=== PATIENT | female | born 1975 | race Caucasian/White ===

== ENCOUNTER 2017-02-07 03:38 | Emergency (ER) | payer OTHER ==
[~2017-02-07] VITALS: Ht 172.7 cm; Wt 64.2 kg
[~2017-02-07 03:38] MED LIST: AMBIEN10 M1 PO; AUGMENTIN875 MG PO; BACTRIM,SEPT1 TABLET PO; CELEXA20 MG PO; CLEOCIN150 MG PO; CLONAZEPAM1 MG PO; Cleocin PO; DOXEPIN HCL150 MG PO; EFFEXOR XR75 MG; EXCUSE; FLEXERIL10 MG PO; FOCALIN XR20 MG PO; INDERAL20 MG PO; INTUNIV1 MG PO; KEFLEX500 MG PO; LATUDA60 MG PO; LYRICA50 MG PO; LYRICA75 MG PO; MUCUS RELIEF600 MG PO; NOHOMEMEDS; PREDNISONE20 MG PO; PREMARIN0.3 MG PO; PROPRANOLOL; ROBITUSSIN NIG118 ML PO; SEROQUEL200 MG PO; SKELAXIN800 MG PO; TEGRETOL XR400 MG PO; TEGRETOL-XR,CA400 MG PO; TEGRETOL200 MG PO; TESSALON PERLE100 MG PO; TOPAMAX100 MG PO; TOPAMAX200 MG PO; TOPAMAX50 MG PO; TRILEPTAL600 MG PO; TYLENOL EXTRA500 MG PO; TYLENOL WITH C1 EACH PO; Tylenol Regular Stre PO; VALTREX1000 MG PO; VICODIN 5-3001 EACH PO; oxyCODONE PO
[2017-02-07 04:21] LABS: HEMATOCRIT 40.9 % (36.0-46.0); MCH 31.7 PG (29.0-34.0); MCHC 33.3 G/DL (30.0-36.0); MCV 95.3 FL (83-99); MEAN PLAT.VOLUME 11.2 uM^3 (9.5-12.4); PLATELET COUNT 136 K/uL (156-360); RBC DIS.WIDTH-CV 13.2 % (11.8-14.6); RED BLOOD COUNT 4.29 M/uL (3.80-5.20); WHITE BLOOD COUNT 5.3 K/uL (4.1-10.2)
[2017-02-07 04:29] LABS: CHLORIDE 109 mEq/L (99-109); POTASSIUM 3.6 mEq/L (3.7-5.4); SODIUM 141 mEq/L (136-147)
[2017-02-07 04:30] LABS: ADD MIUA? YES; BILIRUBIN NEGATIVE; BLOOD LARGE; COLOR YELLOW ((YELLOW)); GLUCOSE (STRIP) NEGATIVE; KETONES NEGATIVE; LEUKOCYTES NEGATIVE; NITRITE NEGATIVE; PROTEIN (STRIP) 100; SPECIFIC GRAVITY 1.018 (1.000-1.030)
[2017-02-07 04:31] LABS: GLUCOSE 129 mg/dL (70-99)
[2017-02-07 04:33] LABS: ANION GAP 10 MEQ/L (2-14)
[2017-02-07 04:35] LABS: GFR ESTIMATE (CALCULATED) > 59 mL/min/
[2017-02-07 04:36] LABS: UREA NITROGEN (BUN) 18 mg/dL (9-23)
[2017-02-07 05:00] LABS: BACTERIA NONE SEEN /HPF; EPITHELIAL CELLS RARE /HPF; MUCUS NONE SEEN /LPF; RED BLOOD CELLS NONE SEEN /HPF (0-5); UCUL ADDED? NO; WHITE BLOOD CELLS NONE SEEN /HPF (0-5)
[2017-02-07] MEDS ORDERED: PERCOCET 5/31 TABLET PO (05:04)
[2017-02-07] MEDS ORDERED: ZOFRAN4 MG PO (05:04)
[2017-02-07] MEDS ORDERED: FLOMAX0.4 MG PO (05:04)
[2017-02-07 05:15] VITALS: BP 133/77
== END 2017-02-07 05:22 | disposition home or self-care (01) ==
LOC: EME 03:38
DX: N20.0 Calculus of kidney (principal); F32.9 Major depressive disorder, single episode, unspecified; Z87.442 Personal history of urinary calculi; Z91.041 Radiographic dye allergy status; Z88.6 Allergy status to analgesic agent; Z88.8 Allergy status to other drugs, medicaments and biological substances; F17.200 Nicotine dependence, unspecified, uncomplicated
CPT/HCPCS: 80048; 81003; 85027; 99281; 99285; J2270; J7030

== ENCOUNTER 2017-03-20 11:43 | Emergency (ER) | payer OTHER ==
[~2017-03-20] VITALS: Ht 172.7 cm; Wt 61.9 kg
[~2017-03-20 11:43] MED LIST changes: +FLOMAX0.4 MG PO; +PERCOCET 5/31 TABLET PO; +ZOFRAN4 MG PO
[2017-03-20 12:33] LABS: EOSINOPHIL (%) 2.4 % (0-5); EOSINOPHIL COUNT 0.1 K/uL (0-0.3); HEMATOCRIT 37.6 % (36.0-46.0); IMMATURE GRANULOCYTE (%) 0.8 % (0.0-0.7); IMMATURE GRANULOCYTE COUNT 0.1 K/uL; INSTRUMENT ABS NEUTROPHIL CT 3.1 K/uL; LYMPHOCYTE COUNT 2.3 K/uL (1.0-2.8); MCH 31.5 PG (29.0-34.0); MCHC 34.3 G/DL (30.0-36.0); MCV 91.9 FL (83-99); MEAN PLAT.VOLUME 9.5 uM^3 (9.5-12.4); MONOCYTE (%) 6.3 % (3-12); MONOCYTE COUNT 0.4 K/uL (0-0.8); NEUTROPHIL (%) 51.6 % (45-76); NEUTROPHIL COUNT 3.1 K/uL (1.8-6.4); PLATELET COUNT 474 K/uL (156-360); RBC DIS.WIDTH-CV 12.8 % (11.8-14.6); RBC DIS.WIDTH-SD 42.5 % (39-53); RED BLOOD COUNT 4.09 M/uL (3.80-5.20); WHITE BLOOD COUNT 5.9 K/uL (4.1-10.2)
[2017-03-20] MEDS ORDERED: BACTRIM,SEPT1 TABLET PO (13:03)
[2017-03-20] MEDS ORDERED: KEFLEX500 MG PO (13:03)
[2017-03-20 13:10] LABS: CHLORIDE 99 mEq/L (99-109); POTASSIUM 2.8 mEq/L (3.7-5.4); SODIUM 138 mEq/L (136-147)
[2017-03-20 13:12] LABS: GLUCOSE 89 mg/dL (70-99)
[2017-03-20 13:13] LABS: ANION GAP 11 MEQ/L (2-14)
[2017-03-20 13:16] LABS: GFR ESTIMATE (CALCULATED) > 59 mL/min/
[2017-03-20 13:17] LABS: UREA NITROGEN (BUN) 13 mg/dL (9-23)
[2017-03-20 13:30] LABS: ADD MEDTOX COMMENT Y; AMPHETAMINE NEGATIVE (500 ng/mL); BARBITURATES NEGATIVE (200 ng/mL); BENZODIAZEPINES NEGATIVE (150 ng/mL); COCAINE NEGATIVE (150 ng/mL); INTERNAL CONTROLS VALID? YES; METHADONE NEGATIVE (200 ng/mL); METHAMPHETAMINE NEGATIVE (500 ng/mL); OPIATES (MORPHINE) PRESUMPTIVE POSITIVE (100 ng/mL); OXYCODONE NEGATIVE (100 ng/mL); PHENCYCLIDINE NEGATIVE (25 ng/mL); PROPOXYPHENE NEGATIVE (300 ng/mL); THC CANNABINOIDS NEGATIVE (50 ng/mL); TRICYCLIC ANTIDEPRESSANTS NEGATIVE (300 ng/mL)
[2017-03-20 13:59] VITALS: BP 119/83
== END 2017-03-20 14:00 | disposition home or self-care (01) ==
LOC: EME 11:43 → EXP 11:43
PROVIDERS: Physician Assistant
DX: L02.611 Cutaneous abscess of right foot (principal); L02.413 Cutaneous abscess of right upper limb; E87.6 Hypokalemia; F17.200 Nicotine dependence, unspecified, uncomplicated; F32.9 Major depressive disorder, single episode, unspecified; Z91.040 Latex allergy status; Z88.6 Allergy status to analgesic agent
CPT/HCPCS: 80048; 83605; 84999; 85025; 99281; 99284

== ENCOUNTER 2017-03-22 13:13 | Emergency (ER) | payer OTHER ==
[~2017-03-22] VITALS: Ht 172.7 cm; Wt 61.0 kg
[2017-03-22 13:20] VITALS: BP 103/67
== END 2017-03-22 14:12 | disposition home or self-care (01) ==
LOC: EME 13:13
PROC: 0H9DXZZ Drainage of Right Lower Arm Skin, External Approach (ICD-10-PCS; principal; 2017-03-22)
DX: L02.413 Cutaneous abscess of right upper limb (principal); Z86.14 Personal history of Methicillin resistant Staphylococcus aureus infection; Z48.01 Encounter for change or removal of surgical wound dressing; Z91.040 Latex allergy status; Z88.6 Allergy status to analgesic agent
CPT/HCPCS: 99281; 99283